=== PATIENT | female | born 1960 | race Caucasian/White ===

== ENCOUNTER → 2018-09-12 12:37 | Outpatient (CLI) | payer BC, SELFPAY ==
--- NOTE | 2018-09-12 12:40 | VDLE_ITS ---
Reason For Study: Lt Leg Pain RIGHT LEFT CFV is compressible, spontaneous, phasic, GSV is normal. competent and demonstrates normal CFV is compressible, spontaneous, phasic, augmentation. competent, and demonstrates normal Procedure augmentation. Exam performed in department. FV is compressible, spontaneous, phasic, A preliminary report was called and/or faxed competent and demonstrates normal to Dr. Lainez. augmentation. POP V is compressible, spontaneous, phasic, competent and demonstrates normal augmentation. T/P Trunk is compressible. PTV is compressible. LT PerV is compressible. Interpretation Summary Deep veins of the left lower extremity are patent and compressible segmentally. There is no evidence of left lower extremity deep vein thrombosis. Valvular competence appears intact within the proximal deep venous system on the left . The left greater saphenous vein appears patent and compressible segmentally. Ordering Physician: Blank Lainez Referring Physician: Blank Lainez Performed By: Maxine Jones, RAS, RVT
== END ==
PROVIDERS: Family Provider Family Medicine; PCP Family Medicine; Referring Provider Family Medicine; Visit Provider Family Medicine
DX: I73.9 Peripheral vascular disease, unspecified (principal); M79.605 Pain in left leg
CPT/HCPCS: 93971

== ENCOUNTER → 2018-09-17 12:41 | Outpatient (CLI) | payer BC, SELFPAY ==
--- NOTE | 2018-09-17 12:45 | ART_ITS ---
Procedure A bilateral lower extremity continuous wave Doppler with analog waveform analysis,segmental pressures,and ankle brachial indexes without exercise. Left Segmental Pressures Left brachial= 141mmHg. Left posterior tibial artery = 182mmHg. Left dorsalis pedis artery = 154mmHg. The left dorsalis pedis waveforms are triphasic. The left posterior tibial artery waveforms are triphasic. Right Segmental Pressures Right brachial= 138mmHg. Right posterior tibial artery = 199mmHg. Right dorsalis pedis artery = 202mmHg. The right dorsalis pedis waveforms are triphasic. The right posterior tibial artery waveforms are triphasic. Indices The right ankle brachial index by the dorsalis pedis is 1.43. The right ankle brachial index by the posterior tibial artery is 1.41. The left ankle brachial index by the dorsalis pedis is 1.09. The left ankle brachial index by the posterior tibial artery is 1.29. Interpretation Summary Triphasic waveforms are noted at ankle level bilaterally. The right resting ankle-brachial index is supra-normal, which may be due to arterial calcification, for which clinical correlation is advised. The left resting ankle-brachial index appears normal. There is no evidence of significant arterial occlusive disease on either side. Ordering Physician: Blank Lainez Referring Physician: Blank Lainez Performed By: Fatmata Rosas RVT, RDCS
== END ==
PROVIDERS: Family Provider Family Medicine; PCP Family Medicine; Referring Provider Family Medicine; Visit Provider Family Medicine
DX: I73.9 Peripheral vascular disease, unspecified (principal)
CPT/HCPCS: 93923

== ENCOUNTER → 2018-11-05 08:52 | Outpatient (CLI) | payer BC, SELFPAY ==
--- NOTE | 2018-11-05 08:56 | AAVD_ITS ---
Reason For Study: Aortic Atherosclerosis Aorta Measurements Aorta Doppler Measurements Proximal aorta measures1.50 x 1.50cm. in cross- Peak systolic flow velocities within the proximal sectional axis. aorta measure 166 cm/sec. Proximal aorta measures1.47cm. in longitudinal Peak systolic flow velocities within the mid aorta axis. measure 145 cm/sec. Mid aorta measures1.30 x 1.33cm. in cross- Peak systolic flow velocities within the distal sectional axis. aorta measure 110 cm/sec. Mid aorta measures1.31cm. in longitudinal axis. Distal aorta measures1.37 x 1.31cm. in cross- sectional axis. Distal aorta measures1.35cm. in longitudinal axis. Left Iliac Artery Left iliac artery measures 0.87 x 0.89 cm. in the cross-sectional axis. Left iliac artery measures 0.93 cm. in the longitudinal axis. Lt iliac artery, Prox PSV 141 cm/sec. Lt iliac artery, Mid PSV 125 cm/sec. Right Iliac Artery Right iliac artery measures 0.74 x 0.70 cm. in the cross-sectional axis. Right iliac artery measures 0.83 cm. in the longitudinal axis. Rt iliac artery, Prox PSV 123 cm/sec. Rt iliac artery, Mid PSV 141 cm/sec. Procedure Aorta IVC Iliac vasculature or bypass grafts [id number]. Exam performed in department. Interpretation Summary 1. No aortoiliac stenosis or aneurysm. Ordering Physician: Crow Toth Referring Physician: Blank Lainez Performed By: Catarina Song RVT and Student
--- NOTE | 2018-11-05 08:57 | VDLE_ITS ---
Reason For Study: Aortic Atherosclerosis Procedure LEFT Exam performed in department. CFV is compressible, spontaneous, phasic, competent, and demonstrates normal augmentation. FV is compressible, spontaneous, phasic, competent and demonstrates normal augmentation. POP V is compressible, spontaneous, phasic, competent and demonstrates normal augmentation. T/P Trunk is compressible. PTV is compressible. LT PerV is compressible. SFJ is competent. GSV is competent. ASV above knee is INCOMPETENT for greater than 0.5 seconds and measures 0.20 x 0.23 cm. 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 Interpretation Summary 1. Left no DVT. 2. Left ASV reflux but small 2.3mm. Ordering Physician: Crow Toth Referring Physician: Blank Lainez Performed By: Catarina Song RVT and Student
--- NOTE | 2018-11-05 08:57 | ADUL_ITS ---
Reason For Study: Aortic Atherosclerosis Left Velocities Ext Iliac Artery, dist = 192 cm./sec. Common Femoral Artery, mid = 112 cm./sec. Supf. Femoral Artery, prox = 139 cm./sec. Supf. Femoral Artery, mid = 91.9 cm./sec. Supf. Femoral Artery, dist = 132 cm./sec. Profunda Femoral Artery = 77.4 cm./sec. Popliteal Artery, proximal, = 99 cm./sec. Popliteal Artery, mid = 90.4 cm./sec. Popliteal Artery, distal = 70.9 cm./sec. Post. Tibial Artery, prox = 99.1 cm./sec. Post Tibial Artery, mid = 97.9 cm./sec. Post Tibial Artery, dist. = 117 cm./sec. Peroneal Artery, prox = 61.6 cm./sec. Peroneal Artery, mid = 33.4 cm./sec. Peroneal Artery,dist. = 68 cm./sec. Ant.Tibial Artery, prox = 42.4 cm./sec. Ant Tibial Artery, mid = 65.6 cm./sec. Ant. Tibial Artery, distal = 68.8 cm./sec. Procedure Exam performed in department. Interpretation Summary 1. Left leg with no stensosi and triphasic flow noted. Ordering Physician: Crow Toth Referring Physician: Blank Lainez Performed By: Catarina Song RVT and Student
== END ==
PROVIDERS: Family Provider Family Medicine; PCP Family Medicine; Referring Provider Surgery Vascular Surgery; Visit Provider Surgery Vascular Surgery
DX: I70.0 Atherosclerosis of aorta (principal); I77.1 Stricture of artery; I70.212 Atherosclerosis of native arteries of extremities with intermittent claudication, left leg; R60.9 Edema, unspecified; R52 Pain, unspecified
CPT/HCPCS: 93926; 93971; 93978